=== PATIENT | male | born 2000 | race African-American/Black ===

== ENCOUNTER 2022-04-02 08:49 | Emergency (ER) | payer OTHER ==
[2022-04-02] MEDS ORDERED: Ibuprofen 800 MG TAB ONE (09:13)
== END 2022-04-02 10:06 | disposition home or self-care (01) ==
LOC: BURERS 08:49
DX: B34.9 Viral infection, unspecified (principal); Z20.822 Contact with and (suspected) exposure to COVID-19
CPT/HCPCS: 87804; 99283; U0003; U0005